=== PATIENT | female | born 1990 | race Caucasian/White ===

== ENCOUNTER 2019-03-01 07:13 | Day surgery (SDC) | payer MEDICAID ==
[2019-02-27 10:28] LABS: HEMATOCRIT 41.4 % (36.0-47.0); HEMOGLOBIN 13.8 g/dL (12.0-15.5); MEAN CORPUSCULAR HEMOGLOBIN 30.1 pg (27.0-33.4); MEAN CORPUSCULAR HGB CONC 33.3 g/dL (32.0-36.0); MEAN CORPUSCULAR VOLUME 91 fl (80-97); PLATELET COUNT 412 10^3/uL (150-450); RED BLOOD COUNT 4.58 10^6/uL (3.72-5.28); RED CELL DISTRIBUTION WIDTH 13.4 % (11.5-14.0); WHITE BLOOD COUNT 6.7 10^3/uL (4.0-10.5)
[2019-02-27 10:45] LABS: APPEARANCE,URINE SLIGHTLY-CLOUDY; BILIRUBIN,URINE NEGATIVE (NEGATIVE); COLOR,URINE YELLOW; GLUCOSE, URINE NEGATIVE (NEGATIVE); KETONES,URINE NEGATIVE (NEGATIVE); LEUKOCYTE ESTERASE,URINE MODERATE (NEGATIVE); NITRITE,URINE POSITIVE (NEGATIVE); PROTEIN,URINE 30 mg/dL (NEGATIVE); URINE SPECIFIC GRAVITY 1.025
[~2019-03-01 07:13] MED LIST: LACTATED RINGERS 1000 ML IV PRN; LIDOCAINE 0.5% INJ-PF (5 MG/ML) 50 ML SDV SUBCUT PRN
[2019-03-01] MEDS ORDERED: MEPERIDINE HCL/PF INJ 25 MG/1 ML DISP.SYRIN IV PRN (09:02)
[2019-03-01] MEDS ORDERED: ONDANSETRON HCL INJ/PF 4 MG/2 ML SDV IV PRN (09:02)
[2019-03-01] MEDS ORDERED: PROMETHAZINE HCL INJ 25 MG/1 ML VIAL IV PRN ×2 (09:02)
[2019-03-01] MEDS ORDERED: FENTANYL CITRATE INJ/PF 100 MCG/2 ML AMPUL IV PRN ×3 (09:02)
[2019-03-01] MEDS ORDERED: LIDOCAINE 2% INJ-PF (20 MG/ML) 10 ML AMPUL ONE (09:24)
[2019-03-01] MEDS ORDERED: FENTANYL CITRATE INJ/PF 100 MCG/2 ML AMPUL ONE (09:24)
[2019-03-01] MEDS ORDERED: KETOROLAC TROMETHAMINE 60 MG/2 ML SDV ONE (09:24)
[2019-03-01] MEDS ORDERED: ONDANSETRON HCL INJ/PF 4 MG/2 ML SDV ONE (09:24)
[2019-03-01] MEDS ORDERED: MIDAZOLAM 2 MG/2 ML INJ ONE (09:24)
[2019-03-01] MEDS ORDERED: PROPOFOL INJ 200 MG/20 ML VIAL IV ONE (09:25)
[2019-03-01] MEDS ORDERED: OXYCODONE-ACETAMINOPHEN 5-325 MG TABLET PO PRN ×2 (10:11)
[2019-03-01] MEDS ORDERED: KETOROLAC TROMETHAMINE INJ/PF 30 MG/1 ML SDV IV PRN (10:11)
[2019-03-01] MEDS ORDERED: RINGERS SOLUTION,LACTATED 1,000 ML IV PRN (10:11)
[2019-03-01] MEDS ORDERED: IBUPROFEN 800 MG TABLET PO PRN (10:11)
--- NOTE | 2019-03-01 10:16 | Operative Report ---
Operative Report DATE OF SURGERY: 03/01/19 PREOPERATIVE DIAGNOSIS: Irregular heavy menses despite IUD in place POSTOPERATIVE DIAGNOSIS: Same. The uterine cavity appears to have thickened endometrium. This is most likely due her to hormone and balance with excess estrogen. OPERATION: IUD removal, hysteroscopy with D&C SURGEON: ROSALBA MEDINA ANESTHESIA: GA TISSUE REMOVED OR ALTERED: IUD endocervical and endometrial curettings COMPLICATIONS: None ESTIMATED BLOOD LOSS: 20 cc INTRAOPERATIVE FINDINGS: Uterine cavity shows a lot of thickened endometrium PROCEDURE: Patient was taken the OR and placed in supine position. Anesthesia was induced. She was placed in dorsolithotomy position using Regis stirrups. Her perineum and vagina were prepared and draped in a sterile fashion. Her bladder did not need emptied as she had just voided. A speculum was placed in the vagina and the anterior lip cervix was grasped with a tenaculum. Sound was due 8 cm before and after the case and anteverted. Endocervical curettings were obtained. The uterus was gently dilated. Hysteroscopy revealed a uterine cavity with no fibroids or polyps however very thick endometrium throughout. Sharp curettage was then performed to remove the endometrial lining and this was sent for specimen. Uterus was re-sounded and then all instruments were removed. She is placed back in supine position taken recovery in stable condition.
--- NOTE | 2019-03-01 10:18 | Discharge Summary ---
Discharge Summary (SDC) - Discharge Final Diagnosis: Menorrhagia Date of Surgery: 03/01/19 Discharge Date: 03/01/19 Condition: Good Referrals: ALISE AG PA-C [Primary Care Provider] - Discharge Diet: Regular Discharge Activity: Balance Activity w/Rest, Pelvic Rest Home Care Assistance: None Needed Report the Following to Your Physician Immediately: Vomiting, Fever over 101 Degrees
[2019-03-01 13:07] VITALS: BP 107/55
== END 2019-03-01 12:55 | disposition home or self-care (01) ==
LOC: OROUT 07:13
PROVIDERS: ATTEND Obstetrics & Gynecology
DX: N92.1 Excessive and frequent menstruation with irregular cycle (principal); Z79.899 Other long term (current) drug therapy; Z88.8 Allergy status to other drugs, medicaments and biological substances; Z30.432 Encounter for removal of intrauterine contraceptive device
CPT/HCPCS: 36415; 85027; 81025; 81001; 88305 ×2; 58558; 58301; J2250; J1885; J3010; J2405; J2704; J3490; 952

== ENCOUNTER 2019-06-23 12:53 | Emergency (ER) | payer MEDICAID ==
[2019-06-23] MEDS ORDERED: ONDANSETRON 4 MG TAB.RAPDIS PO ONE (13:34)
[2019-06-23] MEDS ORDERED: NORMAL SALINE 1000 ML 1,000 ML IV ONE (13:34)
--- NOTE | 2019-06-23 13:41 | ER Document Report ---
ED General - General Chief Complaint: Flu Symptoms Stated Complaint: NAUSEA/VOMITING/SHORTNESS OF BREATH Notes: Patient is a 28-year-old female with no significant past medical history presents to the emergency department today with a chief complaint of ongoing flulike symptoms that began 10 days ago. She states last she began feeling ill. She describes multiple related complaints. States since onset her symptoms seem to be worsening. She describes intermittent migraine headaches, dizziness, nausea, vomiting, diarrhea, cough, body aches, intermittent abdominal discomfort primarily in the epigastrium, sore throat, sinus pain and runny nose. She states she was seen 2 days ago in our rapid diagnostic center tested for influenza and strep which were negative and she was subsequently tested for covid 19. She reports that morning prior to going to that center she called and did a telemedicine visit with her primary care doctor who suspected a strep throat infection, they placed her on amoxicillin which she states that she is still taking. She states she is not feeling any better and feels like she is continuing to worsen so she called the hotline today who advised she come to the emergency department for evaluation. She denies any recent travel or known sick contacts. States she is mostly been self isolating and quarantining at home ov er the past 14 days. And for significant period prior to symptom onset. She denies any fevers at all. TRAVEL OUTSIDE OF THE [place] IN LAST 30 DAYS: No - Related Data Allergies/Adverse Reactions: diphenhydramine [From Benadryl] Allergy (Verified 03/01/19 07:44) Past Medical History - Social History Smoking Status: Never Smoker Frequency of alcohol use: None Drug Abuse: None Family History: Reviewed & Not Pertinent Patient has suicidal ideation: No Patient has homicidal ideation: No - Past Medical History Cardiac Medical History: Denies: Hx Coronary Artery Disease, Hx Heart Attack, Hx Hypertension Pulmonary Medical History: Denies: Hx Asthma, Hx Bronchitis, Hx COPD, Hx Pneumonia Neurological Medical History: Denies: Hx Cerebrovascular Accident, Hx Seizures Musculoskeletal Medical History: Denies Hx Arthritis Past Surgical History: Reports: Hx Section, Hx Gynecologic Surgery - D&C - Immunizations Hx Diphtheria, Pertussis, Tetanus Vaccination: Yes Review of Systems - Review of Systems Notes: As per HPI -: Yes All other systems reviewed and negative Physical Exam - Vital signs Vitals: Temp Pulse Resp BP Pulse Ox 98.9 F 57 L 18 121/70 100 06/23/19 13:04 06/23/19 13:04 06/23/19 13:04 06/23/19 13:04 06/23/19 13:04 - General General appearance: Appears well, Alert In distress: None Notes: Nontoxic, no acute distress and nondiaphoretic - HEENT Head: Normocephalic Eyes: Normal Conjunctiva: Normal Extraocular movements intact: Yes Neck: Supple - Respiratory Respiratory status: No respiratory distress - Abdominal Inspection: Normal Notes: Patient jabs at her abdomen when describing areas of intermittent pain and reports no discomfort with pushing on the abdomen - Neurological Neuro grossly intact: Yes Cognition: Normal Orientation: AAOx4 - Psychological Associated symptoms: Normal affect, Normal mood - Skin Skin Color: Other - Warm and dry, no rash on visible skin Course - Re-evaluation Re-evalutation: 06/23/19 13:40 History and physical were obtained utilizing telemedicine service here in the emergency department as the patient is a current patient under investigation for the novel coronavirus thereby limiting the exam in order to limit exposures. 06/23/19 17:12 Work-up is largely unremarkable. Patient is still pending coronavirus screening. Discussed that she will still continue to self quarantine at home. Will provide some supportive care medications, Tessalon, Zoan and Bentyl. Advise she return here or any ER immediately with any new, persistent or worsening symptoms. She verbalized understood and agreed. - Vital Signs Vital signs: Temp Pulse Resp BP Pulse Ox 98.9 F 57 L 18 121/70 100 06/23/19 13:04 06/23/19 13:04 06/23/19 13:04 06/23/19 13:04 06/23/19 13:04 - Laboratory Result Diagrams: 06/23/19 15:10 06/23/19 14:50 Laboratory results interpreted by me: 06/23/19 13:50 Urine Urobilinogen 4.0 H Leukocyte Esterase Rfl TRACE H Urine Ascorbic Acid 20 H Discharge - Discharge Clinical Impression: Viral syndrome Condition: Stable Disposition: HOME, SELF-CARE Instructions: Viral Syndrome ([facility]) Additional Instructions: Please continue to self quarantine until you get your coronavirus results. You have been given medications to help support your current situation and help you feel better. Please continue to stay well-hydrated and rest. Please return here or any ER immediately with any new, persistent or worsening symptoms. Prescriptions: Benzonatate [Tessalon Perles 100 mg Capsule] 100 mg PO Q8HP PRN #40 capsule PRN Reason: Dicyclomine HCl [Bentyl 20 mg Tablet] 20 mg PO QID #40 tablet Ondansetron [Zofran Odt 4 mg Tablet] 4 mg PO Q8 PRN #20 tab.rapdis PRN Reason:
--- NOTE | 2019-06-23 14:36 | RADIOLOGY REPORT (SQ) ---
EXAM DESCRIPTION: ACUTE ABDOMEN SERIES IMAGES COMPLETED DATE/TIME: 06/23/2019 2:22 pm REASON FOR STUDY: cough COMPARISON: None. NUMBER OF VIEWS: Three views. TECHNIQUE: Frontal chest, supine abdomen and upright abdomen radiographic images acquired. LIMITATIONS: None. FINDINGS: CHEST: Lungs clear of infiltrates. Mild cardiomegaly. No hilar enlargement. No pleural effusions or pneumothorax FREE AIR: None. No abnormal gas collections. BOWEL GAS PATTERN: Nonobstructive pattern. No dilated loops or air fluid levels. CALCIFICATIONS: No suspicious calcifications. HARDWARE: Clips right upper quadrant post cholecystectomy SOFT TISSUES: No gross mass or suggestion of organomegaly. BONES: No acute fracture. No worrisome bone lesions. OTHER: No other significant finding. IMPRESSION: NO RADIOGRAPHIC EVIDENCE FOR ACUTE ABDOMINAL DISEASE. TECHNICAL DOCUMENTATION: JOB ID: [id number] 2010 [employer]- All Rights Reserved Reading location - IP/workstation name: [email or web address]
[2019-06-23 15:11] LABS: APPEARANCE,URINE SLIGHTLY-CLOUDY; BILIRUBIN,URINE NEGATIVE (NEGATIVE); COLOR,URINE YELLOW; GLUCOSE, URINE NEGATIVE (NEGATIVE); KETONES,URINE NEGATIVE (NEGATIVE); PROTEIN,URINE NEGATIVE (NEGATIVE); URINE SPECIFIC GRAVITY 1.024
[2019-06-23 15:23] LABS: ALBUMIN 4.5 g/dL (3.5-5.0); ALKALINE PHOSPHATASE 93 U/L (38-126); ANION GAP 9 (5-19); ASPARTATE AMINO TRANSFERASE 22 U/L (14-36); BILIRUBIN,DIRECT 0.2 mg/dL (0.0-0.4); BILIRUBIN,TOTAL 0.5 mg/dL (0.2-1.3); BLOOD UREA NITROGEN 10 mg/dL (7-20); CALCIUM 9.6 mg/dL (8.4-10.2); CARBON DIOXIDE 25 mmol/L (22-30); CHLORIDE 106 mmol/L (98-107); GLUCOSE 84 mg/dL (75-110); POTASSIUM 4.2 mmol/L (3.6-5.0); TOTAL PROTEIN 7.9 g/dL (6.3-8.2)
[2019-06-23 15:25] LABS: ABSOLUTE BASOPHILS # (AUTO) 0.1 10^3/uL (0.0-0.2); ABSOLUTE EOSINOPHILS # (AUTO) 0.1 10^3/uL (0.0-0.6); ABSOLUTE MONOCYTES (AUTO) 0.5 10^3/uL (0.1-1.4); ABSOLUTE NEUT (AUTO) 5.8 10^3/uL (1.7-8.2); BASOPHILS % (AUTO) 0.6 % (0-2); EOSINOPHILS % (AUTO) 1.3 % (0-6); HEMATOCRIT 39.2 % (36.0-47.0); HEMOGLOBIN 13.4 g/dL (12.0-15.5); LYMPHOCYTES % (AUTO) 23.7 % (13-45); MEAN CORPUSCULAR HEMOGLOBIN 30.8 pg (27.0-33.4); MEAN CORPUSCULAR HGB CONC 34.2 g/dL (32.0-36.0); MEAN CORPUSCULAR VOLUME 90 fl (80-97); MONOCYTES % (AUTO) 5.7 % (3-13); PLATELET COUNT 390 10^3/uL (150-450); RED BLOOD COUNT 4.35 10^6/uL (3.72-5.28); RED CELL DISTRIBUTION WIDTH 13.6 % (11.5-14.0); SEGMENTED NEUTROPHILS % (AUTO) 68.7 % (42-78); TOTAL CELLS COUNTED % (AUTO) 100 %; WHITE BLOOD COUNT 8.5 10^3/uL (4.0-10.5)
[2019-06-23 17:24] VITALS: BP 112/64
== END 2019-06-23 17:23 | disposition home or self-care (01) ==
LOC: ER 12:53
DX: B34.9 Viral infection, unspecified (principal); R11.2 Nausea with vomiting, unspecified; R19.7 Diarrhea, unspecified; R05 Cough; R42 Dizziness and giddiness; J02.9 Acute pharyngitis, unspecified; J34.89 Other specified disorders of nose and nasal sinuses; R09.89 Other specified symptoms and signs involving the circulatory and respiratory systems; G43.909 Migraine, unspecified, not intractable, without status migrainosus; Z88.8 Allergy status to other drugs, medicaments and biological substances
CPT/HCPCS: 99283; 36415; 83690; 84703; 85025; 80053; 81001; 74022; S0119; J7030

== ENCOUNTER 2019-06-29 11:18 | Outpatient (CLI) | payer MEDICAID ==
[2019-06-29 11:59] LABS: A TYPE INFLUENZA AG NEGATIVE (NEGATIVE); B INFLUENZA AG NEGATIVE (NEGATIVE)
== END 2019-06-29 13:57 | disposition home or self-care (01) ==
LOC: RDC 11:18
PROVIDERS: ATTEND Nurse Practitioner Family
DX: Z20.828 Contact with and (suspected) exposure to other viral communicable diseases (principal)
CPT/HCPCS: 87070; 87635; 87804; 87880